=== PATIENT | female | born 1970 | race Caucasian/White ===

== ENCOUNTER → 2024-02-22 17:13 | Outpatient (REF) | payer OTHER, SELFPAY | LOC: RAD 17:13 | PROVIDERS: ATTENDING PHYSICIAN Physician Assistant Medical | DX: M25.531 Pain in right wrist (principal) | CPT/HCPCS: 73110 ==

== ENCOUNTER 2025-07-07 21:03 | Emergency (ER) | payer OTHER, SELFPAY ==
[2025-07-07 21:14] VITALS: BP 115/78
--- NOTE | 2025-07-08 00:22 | EDRN ---
patient provided with an ice pack
--- NOTE | 2025-07-08 00:31 | ED.GENMED ---
History of Present Illness
General
Chief Complaint: Musculo-Skeletal Complaint
Time Seen by Provider: 07/08/25 00:29
History of Present Illness
History of Present Illness:
FOCUSED PAST MEDICAL HISTORY
- IDDM, former smoker,
REVIEW OF OLD RECORDS
- The patient was diagnosed with a wrist sprain in April 2021
Note:
CHIEF COMPLAINT(S)
Wrist pain after a fall.
HISTORY OF PRESENT ILLNESS
The patient is a 55-year-old female who presented with wrist pain following a fall on her porch after slipping on wet tiles. She reports intense pain primarily in the wrist area and describes no pain in the fingers except for swelling. The pain is
severe, consistent with both the radius and ulna being fractured, as revealed by an X-ray. She also notes significant soft tissue swelling. The patient reports that she typically responds well to Percocet for pain management.
She mentioned having previously fractured her right wrist about four to five years ago, treated by Dr. Unger. The current fractures are identified as comminuted, involving multiple fragments, but with minimal angulation that does not require
manipulation. Plans include follow-up with an orthopedic group.
PAST MEDICAL AND SURGICAL HISTORY
The patient fractured her right wrist previously about four to five years ago.
PHYSICAL EXAM
- General: Well appearing but appears uncomfortable related to pain at the left wrist, she appears to have the effects of some use of alcohol but does not appear to be clinically intoxicated
- Head: No craniofacial trauma
- C-spine: No midline c-spine tenderness; normal AROM of C-spine
- Back: Normal AROM thoracolumbar spine
- HEENT: Moist oral mucosa, no blood
- Cardiovascular: No murmurs, normal heart rate, regular rhythm, No chest wall tenderness
- Pulmonary: No respiratory distress, breath sounds are clear and equal
- Abdomen: Soft with no peritoneal signs, no tenderness
- Neurologic: Excellent distal strength all extremities, no coordination deficits
- Psychiatric: Appropriate mental status, normal insight and judgement
- Extremities: There is mild dorsal deformity at the distal left forearm with markedly decreased active range of motion at the left wrist, left third digit ring has been removed by me
- Skin: No rash, no lesions
ELECTROCARDIOGRAM (EKG)
Not mentioned.
PLAN
- Administer Toradol (ketorolac) for pain relief and inflammation.
- Prescribe Percocet (oxycodone and acetaminophen) for pain management.
- Application of a splint to stabilize the wrist.
- Attempt removal of the ring from the affected hand to prevent circulatory compromise due to swelling.
- Follow up with either Dr. Unger or another orthopedic group as per patients convenience.
DIFFERENTIAL DIAGNOSIS
The Differential Diagnosis includes, in no particular order and is not limited to:
- Fracture of the distal radius and ulna
- Sprain or soft tissue injury
- Tendon injury
- Ligament tear
- Contusion
- Osteoporosis-related fracture
- Bone bruise
- Joint dislocation
- Rheumatoid arthritis flare
- Infection (post-fracture risk)
SUMMARY OF ENCOUNTER
The patient was seen in the emergency department for acute wrist pain following a fall. X-rays revealed comminuted fractures of the radius and ulna. Due to minimal angulation, manipulation was deemed unnecessary. Pain management was initiated with
Toradol and Percocet, and a splint was applied. The plan includes follow-up with orthopedics for further management.
DISPOSITION
Discharge with orthopedic follow-up.
EMERGENCY TREATMENTS ADMINISTERED
- Toradol (ketorolac) administered for pain and inflammation.
- Percocet (oxycodone and acetaminophen) prescribed for pain.
MEDICATION RECONCILIATION
- Administered: Toradol (ketorolac injection).
- Prescribed: Percocet (oxycodone and acetaminophen tablet).
MEDICAL DECISION MAKING
-Complexity of Data Reviewed: Chronic condition of previous wrist fracture history.
-Data:
Category 1
- My independent X-ray interpretation showed comminuted fractures of the radius and ulna without significant angulation. No need for manipulation noted.
-Risk:
- Prescription medication for pain management.
DIAGNOSIS
- Distal radius and ulna fracture (ICD-10: S52.605A).
Disposition:
SUMMARY OF ENCOUNTER
The patient, a 55-year-old female, presented with acute wrist pain following a fall. An x-ray showed comminuted fractures of the distal radius and ulna without significant dorsal angulation. Clinically, dorsal angulation was noted, prompting a
reduction procedure. A sugar-tong splint was applied for stabilization. Toradol was administered for pain and inflammation, and a prescription for Percocet was provided for pain control. The patient is advised to follow up with an orthopedic
specialist for further management.
DISPOSITION
Discharge with orthopedic follow-up.
ASSESSMENT
Comminuted fractures of the distal radius and ulna with clinical evidence of dorsal angulation requiring reduction and splinting.
EMERGENCY TREATMENTS ADMINISTERED
Toradol (ketorolac) for pain relief and Percocet (oxycodone and acetaminophen) for pain management.
PLAN
Follow-up with curriculum specialist for further evaluation and management of the wrist fractures. Monitor for any changes in symptoms or increased pain. Reinforce splint care and elevate the wrist to reduce swelling.
INDEPENDENT REVIEW OF LABS AND INTERPRETATION OF TESTS
My independent x-ray interpretation is comminuted fractures of the distal radius and ulna without significant dorsal angulation, but clinical evaluation indicated the need for reduction.
PROCEDURES
Reduction of wrist due to clinical dorsal angulation and application of a sugar-tong splint for stabilization.
FOLLOW-UP INSTRUCTIONS
The patient is advised to follow up with an curriculum specialist promptly for definitive management and possible further imaging or intervention.
MEDICATION RECONCILIATION
-Administered: Toradol (ketorolac injection)
-Prescribed: Percocet (oxycodone and acetaminophen tablet)
MEDICAL DECISION MAKING
- Complexity of Data Reviewed: Chronic conditions affecting care include previous wrist fracture. Differential diagnosis included fracture of the distal radius and ulna, sprain or soft tissue injury, tendon injury, ligament tear, contusion,
osteoporosis-related fracture, bone bruise, joint dislocation, rheumatoid arthritis flare, and infection.
- Data:
Category 1: My independent interpretation of the x-ray showed comminuted fractures of the radius and ulna without significant angulation.
- Risk: Prescription medication was prescribed.
DIAGNOSIS
Distal radius and ulna fracture (ICD-10: S52.605A)
RADIOLOGY
- X-ray of left wrist
EKG
-
LABS
-
UPDATE
-
Past History
Past History
ED Past Medical History: IDDM
ED Past Surgical History: Negative Cardiac
Social History
Tobacco: Non-smoker
Alcohol: Occasional
Drug: None
Personal:
Living: with family
Employment: Employed
Family History
Family History: Diabetes
Phy Exam
Physical Exam
Physical Exam:
See HPI
Course
Orders/Labs/Results
Orders:
Orders
07/07/25 21:17
Wrist, Left 3 Views CR [CR Wrist - Left Min 3 Views] Urgent
Comment:
Reason For Exam: pain
07/08/25 00:42
Ketorolac [Toradol] 30 mg IM NOW STA
Oxycodone/Acetaminophen [Percocet 5/325] 1 tablet PO NOW STA
07/08/25 01:07
Oxycodone/Acetaminophen [Percocet 5/325] 1 tablet PO NOW STA
Vital Signs
Initial and Last Documented VS:
Initial Vital Signs
Temp Pulse Resp BP Pulse Ox
36.8 C 91 16 115/78 99
07/07/25 21:14 07/07/25 21:14 07/07/25 21:14 07/07/25 21:14 07/07/25 21:14
Last Documented Vital Signs
Temp Pulse Resp BP Pulse Ox
36.8 C 91 16 115/78 99
07/07/25 21:14 07/07/25 21:14 07/07/25 21:14 07/07/25 21:14 07/08/25 00:33
Procedures
Joint/Fracture Reduction
Left Wrist:
Indication for procedure:: Slightly displaced angulated distal radius fracture
Procedure completed by: Dr. Mariola Hunter
Consent form signed: No
If no, reason: Emergency procedure
Anesthesia/sedation: 1% Lidocaine and Regional block
Injury was: closed
Further treatement: needs further treatment
Post reduction exam: stable
Capillary Refill: normal
Normal distal neurovascular exam?: Yes
*Pulse Oximetry
SaO2: 99
Oxygen Mode of Delivery: Room air
Patient hypoxic: no
*Critical Care Note
Total Time (30-74mins, 75-104mins- exclusive of procedures): Not Applicable
ED Attending Note
-
Portions of this chart may have been created with voice recognition software.� Occasional wrong word or��sound alike� substitutions may have occurred due to the inherent limitations of voice recognition software.
Discharge Plan
Departure
Patient Disposition: Home (Routine Discharge)
Date of Disposition: 07/08/25
Time of Disposition: 00:42
Patient with high blood pressure during this ER visit?: Yes
Discharge Problem:
Closed fracture distal radius and ulna
Instructions: Wrist Fracture
Prescriptions:
New
oxycodone-acetaminophen [Percocet] 5-325 mg tablet
1 - 2 tab PO Q6HPRN PRN (Reason: pain) Qty: 14 0RF
No Action
oxycodone-acetaminophen 5 MG/325 MG tablet
1 tab PO Q6HPRN PRN (Reason: pain) Qty: 10 0RF
hydrocodone-acetaminophen 1 TABLET tablet
1 tab PO Q4HPRN PRN (Reason: pain) Qty: 8 0RF
Referrals:
Ankit Lorenzo MD [Active, Orthopedics]
Flex Bobo MD [Active, Orthopedics]
UNKNOWN - PT NOT,INTERVIEWE [Unknown Provider]
Activity Restrictions/Additional Instructions:
You can take NSAIDs such as Motrin in addition to taking Percocet. If you take Percocet, I recommend taking some like MiraLAX to prevent constipation.
Interventions
Interventions:
*Risk Screen - Suicide Last Done: 07/07/25 21:14
*General Assessment Last Done: 07/08/25 00:18
*Neglect/Abuse Screening Last Done: 07/07/25 21:14
*ED- Fall Risk Assessment Last Done: 07/08/25 00:18
*ED COVID-19 Vaccine History Last Done: 07/08/25 00:18
*Nursing Disposition Last Done: 07/08/25 01:27
ED-Musculoskeletal Assessment Last Done: 07/08/25 00:18
Discharge Date and Time
Discharge Date/Time: 07/08/25 01:30
Print Language: ICELANDIC
[2025-07-08] MEDS: PERCOCET 5/325 1 TABLET PO ×2 (00:45→01:12)
[2025-07-08] MEDS: TORADOL 30 MG IM (00:46)
== END 2025-07-08 01:30 | disposition home or self-care (01) ==
LOC: EMR 21:03
PROVIDERS: EMERGENCY PHYSICIAN Emergency Medicine; FAMILY PHYSICIAN Physician Assistant Medical
DX: S52.572A Other intraarticular fracture of lower end of left radius, initial encounter for closed fracture (principal); S52.602A Unspecified fracture of lower end of left ulna, initial encounter for closed fracture; R03.0 Elevated blood-pressure reading, without diagnosis of hypertension; E10.9 Type 1 diabetes mellitus without complications; Z79.4 Long term (current) use of insulin; Z83.3 Family history of diabetes mellitus; W01.0XXA Fall on same level from slipping, tripping and stumbling without subsequent striking against object, initial encounter; Y92.008 Other place in unspecified non-institutional (private) residence as the place of occurrence of the external cause
CPT/HCPCS: 99284; 96372; 25605; 73110

== ENCOUNTER → 2025-07-10 08:40 | Outpatient (REF) | payer OTHER, SELFPAY ==
[2025-07-10 09:48] LABS: Hematocrit 36.9 % (37.0-47.0); Hemoglobin 12.4 g/dL (12.0-16.0); Mean Corp Hgb Conc. 33.6 g/dL (33.0-37.0); Mean Corpuscular Volume 97.1 fL (81.0-99.0); Nucleated Red Blood Cells % 0 %; Platelet Count 295 10^3/uL (130-400); Red Cell Dist. Width 12.9 % (11.5-14.5)
[2025-07-10 15:22] LABS: Blood Urea Nitrogen 8 mg/dl (7-17); Calcium 9.3 mg/dl (8.4-10.2); Carbon Dioxide 27 mmol/L (22-30); Chloride 104 mmol/L (98-107); Glucose 205 mg/dl (70-99); Potassium 4.3 mmol/L (3.5-5.1); Sodium 135 mmol/L (135-145); eGFR > 60.00
== END ==
LOC: REG 08:40
PROVIDERS: ATTENDING PHYSICIAN Orthopaedic Surgery; FAMILY PHYSICIAN Physician Assistant Medical
DX: Z01.818 Encounter for other preprocedural examination (principal)
CPT/HCPCS: 36415; 80048; 85025

== ENCOUNTER → 2025-07-12 07:44 | Outpatient (REF) | payer OTHER, SELFPAY | LOC: REG 07:44 | PROVIDERS: ATTENDING PHYSICIAN Orthopaedic Surgery; FAMILY PHYSICIAN Physician Assistant Medical | DX: Z01.818 Encounter for other preprocedural examination (principal) | CPT/HCPCS: 93005 ==